=== PATIENT | male | born 1975 | race American Indian/Alaskan Native ===

== ENCOUNTER 2021-08-10 01:29 | Emergency (ER) | payer MEDICAID ==
--- NOTE | 2021-08-10 11:24 | XRay Report ---
BILATERAL KNEES, 2 VIEWS EACH INDICATION / CLINICAL INFORMATION: pain. COMPARISON: None available. FINDINGS: BONES / JOINT(S): No acute fracture or subluxation. Previous internal fixation of the proximal left t ibia. 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 Calcification in the right knee adjacent to the proximal MCL suggests remote prior MCL sprain. SOFT TISSUES: No significant abnormality. ADDITIONAL FINDINGS: None. IMPRESSION: 1. No acute findings. Chronic changes in both knees as described above. Signer Name: Mahad Bob MD Signed: 08/10/2021 11:18 AM Workstation Name: [id number]
[2021-08-10] MEDS ORDERED: KETOROLAC 30 MG/1 ML INJ IM ONE (11:25)
--- NOTE | 2021-08-10 11:26 | XRay Report ---
LEFT HIP 2 VIEW(S) INDICATION / CLINICAL INFORMATION: left hip pain COMPARISON: None available. FINDINGS: BONES / JOINT(S): No acute fracture or subluxation. No significant arthritis. Patient is status post plate screw fixation of the bilateral superior pubic rami. No hardware complication. 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 ADDITIONAL FINDINGS: None. Signer Name: Tim Barrett DO Signed: 08/10/2021 11:21 AM Workstation Name: [id number]
--- NOTE | 2021-08-10 11:44 | Emergency Department Report ---
ED Lower Extremity HPI - General Chief Complaint: Extremity Problem,Nontraumatic Stated Complaint: RT LEG PAIN FROM WALKING Source: patient Mode of arrival: Ambulatory Limitations: No Limitations - History of Present Illness Initial Comments: 46-year-old male presents to the ED complaining of bilateral knee pain after a fall x 1 day ago . States that he had a prior injury 10 months ago and uses a walker and a cane and accidentally slipped and fell. Patient states his pain is currently 7 out of 10. Patient has mild edema noted to the bilateral knees. Patient currently has Casper wrap in place. Patient to able bear weight without difficulty. No obvious deformity noted. No distracting injury noted. No acute distress noted. No ill appearance noted. Onset/Timin -: days(s) Injury: Knee: Right, Left Place: home Severity scale (0 -10): 7 Improves With: nothing Worsens With: weight bearing Context: fall Associated Symptoms: swelling Treatments Prior to Arrival: cold therapy, NSAIDS - Related Data Previous Rx's Medication Instructions Recorded Last Taken Type Meloxicam [Mobic] 15 mg PO BID 15 Days #30 tab 08/10/21 Unknown Rx Allergies Allergy/AdvReac Type Severity Reaction Status Date / Time No Known Allergies Allergy Unverified 08/10/21 09:40 ED Review of Systems ROS: Stated complaint: RT LEG PAIN FROM WALKING Other details as noted in HPI Constitutional: denies: chills, fever Eyes: denies: eye pain, eye discharge, vision change ENT: denies: ear pain, throat pain Respiratory: denies: cough, shortness of breath, wheezing Cardiovascular: denies: chest pain, palpitations Endocrine: no symptoms reported Gastrointestinal: denies: abdominal pain, nausea, diarrhea Genitourinary: denies: urgency, dysuria Musculoskeletal: joint swelling. denies: back pain, arthralgia Skin: denies: rash, lesions Neurological: denies: headache, weakness, paresthesias Psychiatric: denies: anxiety, depression Hematological/Lymphatic: denies: easy bleeding, easy bruising ED Past Medical Hx - Medications Home Medications: Home Medications Medication Instructions Recorded Confirmed Last Taken Type Meloxicam [Mobic] 15 mg PO BID 15 Days #30 tab 08/10/21 Unknown Rx ED Physical Exam - General Limitations: No Limitations General appearance: alert, in no apparent distress - Head Head exam: Present: atraumatic, normocephalic - Eye Eye exam: Present: normal appearance - ENT ENT exam: Present: mucous membranes moist - Neck Neck exam: Present: normal inspection - Respiratory Respiratory exam: Present: normal lung sounds bilaterally. Absent: respiratory distress - Cardiovascular Cardiovascular Exam: Present: regular rate, normal rhythm. Absent: systolic murmur, diastolic murmur, rubs, gallop - GI/Abdominal GI/Abdominal exam: Present: soft, normal bowel sounds - Rectal Rectal exam: Present: deferred - Extremities Exam Extremities exam: Present: normal inspection, full ROM - Back Exam Back exam: Present: normal inspection - Neurological Exam Neurological exam: Present: alert, oriented X3 - Psychiatric Psychiatric exam: Present: normal affect, normal mood - Skin Skin exam: Present: warm, dry, intact, normal color. Absent: rash ED Course Vital Signs 08/10/21 08/10/21 03:21 12:16 Temperature 97.9 F 97.8 F Pulse Rate 99 H 79 Respiratory 18 15 Rate Blood Pressure 135/103 Blood Pressure 132/77 [Right] O2 Sat by Pulse 99 99 Oximetry ED Lower Extremity MDM - Radiology Data [facility] [address] [place] [address] XRay Report Signed Patient: PRATEEK CHAUDHARI MR#: [id number] : 1975 Acct:[id number] Age/Sex: 46 / M ADM Date: 08/10/21 Loc: ED Attending Dr: Ordering Physician: OG NEWBERRY Date of Service: 08/10/21 Procedure(s): XR knee BILAT 1-2V Accession Number(s): [id number] cc: OG NEWBERRY Fluoro Time In Minutes: BILATERAL KNEES, 2 VIEWS EACH INDICATION / CLINICAL INFORMATION: pain. COMPARISON: None available. FINDINGS: BONES / JOINT(S): No acute fracture or subluxation. Previous internal fixation of the proximal left tibia. 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 Calcification in the right knee adjacent to the proximal MCL suggests remote prior MCL sprain. SOFT TISSUES: No significant abnormality. ADDITIONAL FINDINGS: None. IMPRESSION: 1. No acute findings. Chronic changes in both knees as described above. Signer Name: Mahad Bob MD Signed: 08/10/2021 11:18 AM Workstation Name: Mobile Authentication - Medical Decision Making 46-year-old male presents to the ED complaining of bilateral knee pain after the fall x 1 day ago . States that he had a prior injury 10 months ago and uses a walker and a cane and accidentally slipped and fell. Patient states his pain is currently 7 out of 10. Patient has mild edema noted to the bilateral knees. Patient currently has Casper wrap in place. Patient is able to bear weight without difficulty. No obvious deformity noted. No distracting injury noted. No acute distress noted. No ill appearance noted. Physical examination show mild edema noted to the bilateral knees. Patient .given Toradol 15 mg IM. At time of discharge patient is pain is currently 1 out of 10. Patient is currently followed by orthopedic at [facility]. Rechecked the patient is resting quietly quietly and comfortable and feeling better. I discussed the results of diagnostic study, my clinical impression and the plan for further treatment with the patient. Patient agrees with plan and discharge at this present time. All question addressed. I have given the patient instruction regarding a diagnosis ,expectation ,follow- up and return precaution. I explained to the patient that emergent condition may arise and to return to the ED for new worsen and any new persisting condition. I have explained the importance of following up with the primary care physician or referral physician listed below has instructed. The patient verbalized understanding of discharge instruction. Critical care attestation.: If time is entered above; I have spent that time in minutes in the direct care of this critically ill patient, excluding procedure time. ED Disposition Clinical Impression: Bilateral chronic knee pain Disposition: 01 HOME / SELF CARE / HOMELESS Is pt being admited?: No Does the pt Need Aspirin: No Condition: Stable Instructions: Chronic Knee Pain, Adult, [id number] Additional Instructions: Medication has proven prescribed Follow-up with your orthopedic as previous schedule Prescriptions: Meloxicam [Mobic] 15 mg PO BID 15 Days #30 tab Referrals: [facility] [Other] - 3-5 Days DRU PEARSON MD [Staff Physician] - 3-5 Days Forms: Work/School Release Form(ED)
[2021-08-10 12:17] VITALS: BP 132/77
== END 2021-08-10 12:17 | disposition home or self-care (01) ==
LOC: ED 01:29
DX: G89.29 Other chronic pain (principal); M25.562 Pain in left knee; M25.561 Pain in right knee
CPT/HCPCS: 73502; 73560; 96372; 99283; J1885